=== PATIENT | male | born 2000 | race Two or more races ===

== ENCOUNTER 2019-03-10 14:03 | Emergency (ER) | payer MEDICAID ==
[2019-03-10 14:28] VITALS: BP 138/70
[2019-03-10] MEDS ORDERED: IBUPROFEN 800 MG TABLET PO ONE (15:46)
--- NOTE | 2019-03-10 16:20 | RADIOLOGY REPORT (SQ) ---
EXAM DESCRIPTION: FOOT RIGHT COMPLETE COMPLETED DATE/TIME: 03/10/2019 4:07 pm REASON FOR STUDY: great toe injury, pain base of great toe into foot COMPARISON: None. EXAM PARAMETERS: NUMBER OF VIEWS: Three views. TECHNIQUE: AP, lateral and oblique radiographic images acquired of the right foot. LIMITATIONS: None. FINDINGS: MINERALIZATION: Normal. BONES: No acute fracture or dislocation. No worrisome bone lesions. JOINTS: No effusion. SOFT TISSUES: No significant soft tissue swelling. No radiopaque foreign body. OTHER: No other significant finding. IMPRESSION: NO FRACTURE. TECHNICAL DOCUMENTATION: JOB ID: [id number] [id number] 2010 [employer]- All Rights Reserved Reading location - IP/workstation name: [email or web address]
--- NOTE | 2019-03-10 16:35 | ER Document Report ---
HPI - HPI Patient complains to provider of: right great toe injury Time Seen by Provider: 03/10/19 15:42 Pain Level: 4 Context: Patient is a 18-year-old male otherwise healthy presents to the emergency department with an injury to his right great toe. States yesterday he was playing with friends. States he went to kick a soccer ball but instead missed the ball and hit directly on the ground. Patient states he feels as though he may have jammed his right great toe. Patient states he has had increased pain ever since which is what presents him to the emergency room. Patient denies taking any uvww-cqv-pwcinxm analgesics. - CONSTITUTIONAL Constitutional: DENIES: Fever, Chills - EENT EENT: DENIES: Sore Throat, Ear Pain, Eye problems - NEURO Neurology: DENIES: Headache, Weakness, Vision blurred, Dizzinesss / Vertigo - CARDIOVASCULAR Cardiovascular: DENIES: Chest pain - RESPIRATORY Respiratory: DENIES: Trouble Breathing, Coughing - GASTROINTESTINAL Gastrointestinal: DENIES: Abdominal Pain, Black / Bloody Stools - URINARY Urinary: DENIES: Dysuria, Urgency, Frequency - MUSCULOSKELETAL Musculoskeletal: REPORTS: Extremity pain - right foot Past Medical History - General Information source: Patient - Social History Smoking Status: Current Every Day Smoker Chew tobacco use (# tins/day): No Frequency of alcohol use: None Drug Abuse: None Family History: Reviewed & Not Pertinent Patient has suicidal ideation: No Patient has homicidal ideation: No Pulmonary Medical History: Reports: Hx Asthma Renal/ Medical History: Denies: Hx Peritoneal Dialysis Vertical Provider Document - CONSTITUTIONAL Agree With Documented VS: Yes Notes: GENERAL: Alert, interacts well. No acute distress. HEAD: Normocephalic, atraumatic. EYES: Pupils equal, round, and reactive to light. Extraocular movements intact. ENT: Oral mucosa moist, tongue midline. NECK: Full range of motion. Supple. Trachea midline. LUNGS: Clear to auscultation bilaterally, no wheezes, rales, or rhonchi. No respiratory distress. HEART: Regular rate and rhythm. No murmur ABDOMEN: Soft, non-tender. Non-distended. Bowel sounds present in all 4 quadrants. EXTREMITIES: Moves all 4 extremities spontaneously. normal radial and dorsalis pedis pulses bilaterally. Full range of motion right ankle. Pain noted base of right great toe and distal great toe, ecchymosis also noted surrounding area. Capillary refill distal right great toe less than 2 seconds. BACK: no cervical, thoracic, lumbar midline tenderness. No saddle anesthesia, normal distal neurovascular exam. NEUROLOGICAL: Alert and oriented x3. Normal speech. cranial nerves II through XII grossly intact PSYCH: Normal affect, normal mood. SKIN: Warm, dry, normal turgor. Superficial skin abrasion noted dorsal aspect of the right distal great toe. - INFECTION CONTROL TRAVEL OUTSIDE OF THE [place] IN LAST 30 DAYS: No Course - Re-evaluation Re-evalutation: 03/10/19 16:30 Patient states his immunizations are up-to-date to include tetanus. Patient's x-ray revealed no signs of fractures. I discussed this at length with patient. Discussed whzz-yld-gskpijd analgesics and following up with primary care provider. Patient voices understanding, stable for discharge. - Vital Signs Vital signs: Temp Pulse Resp BP Pulse Ox 98.4 F 66 18 138/70 H 100 03/10/19 14:26 03/10/19 14:26 03/10/19 14:26 03/10/19 14:26 03/10/19 14:26 Discharge - Discharge Clinical Impression: Injury of right great toe Qualifiers: Encounter type: initial encounter Qualified Code(s): S99.921A - Unspecified injury of right foot, initial encounter Condition: Stable Disposition: HOME, SELF-CARE Instructions: Abrasions ([facility]), Hematoma ([facility]) Additional Instructions: As we discussed you have been seen and treated in the emergency department for an injury to your right great toe. Your x-rays revealed no signs of fractures. Just as if you were to sprain or strain your ankle you can do the same to your toes. Please make sure you are applying ice 20 minutes on, 20 minutes off and then taking [id number]-vvl-[id number] analgesics as needed. Please return to the emergency room for any other concerns. Forms: Return to Work
== END 2019-03-10 16:39 | disposition home or self-care (01) ==
LOC: ER 14:03
DX: S90.111A Contusion of right great toe without damage to nail, initial encounter (principal); X58.XXXA Exposure to other specified factors, initial encounter; Y93.89 Activity, other specified; F17.200 Nicotine dependence, unspecified, uncomplicated
CPT/HCPCS: 99283; 73630; J3490